=== PATIENT | female | born 1955 | race Caucasian/White ===

== ENCOUNTER → 2018-08-19 | Outpatient (CLI) | payer BC ==
[2016-04-27 15:40] VITALS: BP 143/54
[~2018-08-19] MED LIST: ATOR20TA58 PO; CATALYST; HYDR-2679 PO; LACT1CAP29 PO; MELO7.5T5 PO; METF500T16 PO; TOPI100T8 PO
--- NOTE | 2018-08-19 11:26 | KCIC ---
MRI right knee without contrast dated 08/19/2018 10:15 AM Indication: Pain . Pain history of cyst Comparison: No comparison is available. Technique: Routine multiplanar multisequence imaging performed. . Findings: Moderate tricompartmental hypertrophic change with small marginal osteophytes. Thinning and surface irregularity of the articular cartilage throughout. Full-thickness cartilage loss over the weightbearing surfaces medial femoral condyle and medial tibial plateau. There is also full-thickness cartilage loss of the medial patellar facet and medial femoral trochlea. Small joint effusion. Moderate-sized complex popliteal cyst measures up to 4.6 cm craniocaudal. Small loose bodies at the posterior lateral joint space.. Anterior cruciate ligament is intact. PCL is intact. Medial and lateral collateral complexes are intact. Iliotibial band, popliteus tendon and pes anserine complex within normal limits. Quadriceps and patellar tendon are intact. There is mild patchy superficial infra patellar edema, nonspecific. No abnormality of the medial or lateral retinaculum. There is a radial tear at the medial meniscal root. There is some linear signal at the posterior horn extends to the free edge. There is also blunted morphology of the free edge of the medial meniscal body. Anterior horn is intact. Lateral meniscus is normal in morphology and signal. IMPRESSION: 1. 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 Full-thickness cartilage loss at the medial and anterior compartments. 2. Complex tear posterior horn/body of medial meniscus, likely degenerative. There is also a degenerative radial tear at the medial meniscal root. 3. Small joint effusion and moderate-sized complex popliteal cyst. Small loose bodies at the posterior lateral joint space. Electronically signed by: Abdirahman Cervantes MD (08/19/2018 11:23 AM) [facility]
== END | disposition home or self-care (01) ==
LOC: KCIC MRI 09:50
PROVIDERS: ATTEND Orthopaedic Surgery
DX: M25.561 Pain in right knee (principal)
CPT/HCPCS: 73721

== ENCOUNTER → 2018-10-21 | Outpatient (CLI) | payer BC ==
[2016-04-27 15:40] VITALS: BP 143/54
[~2018-10-21] MED LIST changes: +ASPI325T11 PO; +LOSA-73 PO; +OXYC1TAB15 PO; +TOPI25TA52 PO
--- NOTE | 2018-10-21 09:55 | EKG ---
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
--- NOTE | 2018-10-21 12:56 | RAD ---
EXAM: Chest, 2 views. HISTORY: Preoperative evaluation. Pain. COMPARISON: None. FINDINGS: 2 views of the chest are obtained. There is no infiltrate, pleural effusion or pneumothorax. The heart is normal in size. There is suspected bilateral infrahilar atelectasis or scarring. IMPRESSION: No acute pulmonary finding. Electronically signed by: Judith Lindsey MD (10/21/2018 12:52 PM) [facility]
== END | disposition home or self-care (01) ==
LOC: SURGPAT 09:09
PROVIDERS: ATTEND Orthopaedic Surgery
DX: Z01.818 Encounter for other preprocedural examination (principal); M17.11 Unilateral primary osteoarthritis, right knee
CPT/HCPCS: 36415; 71046; 87641; 93005